=== PATIENT | female | born 1995 | race Caucasian/White ===

== ENCOUNTER 2016-09-03 14:19 | Emergency (ER) | payer MEDICAID ==
--- NOTE | 2016-09-03 15:39 | ER Document Report ---
ED Skin Rash/Insect Bite/Abscs - General Chief Complaint: Rash Stated Complaint: SKIN BREAK OUT Time seen by provider: 15:34 Mode of Arrival: Ambulatory Information source: Patient Notes: 21-year-old female presents to ED for a painful rash to the buttocks and down her left leg. Patient states this started out itching and burning and then a couple days later she noticed a rash she states that there is more in more bumps popping out. Does not remember any fever. TRAVEL OUTSIDE OF THE [place] IN LAST 30 DAYS: No - HPI Patient complains to provider of: Skin rash/lesion Onset: Other - Couple days burning and itching started first and then the rash Onset/Duration: Gradual Quality of pain: Burning - And teaching Severity: Moderate Pain Level: 3 Skin Character: Rash Quality of rash: Itchy, Burning Identify cause: No Exacerbated by: Other - Anything touches the rash Relieved by: Denies Similar symptoms previously: No Recently seen / treated by doctor: No - Related Data Allergies/Adverse Reactions: No Known Allergies Allergy (Unverified 09/04/13 09:44) Past Medical History - General Information source: Patient - Social History Smoking Status: Never Smoker Chew tobacco use (# tins/day): No Frequency of alcohol use: None Drug Abuse: None 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 Lives with: Spouse/Significant other - And child Family History: Reviewed & Not Pertinent Patient has suicidal ideation: No - Past Medical History Cardiac Medical History: Reports: None Pulmonary Medical History: Reports: None EENT Medical History: Reports: None Neurological Medical History: Reports: None Endocrine Medical History: Reports: None Renal/ Medical History: Reports: None Malignancy Medical History: Reports: None GI Medical History: Reports: None Musculoskeltal Medical History: Reports None Skin Medical History: Reports None Psychiatric Medical History: Reports: None, Hx Depression Traumatic Medical History: Reports: None Infectious Medical History: Reports: None Past Surgical History: Reports: Hx Adenoidectomy, Hx Dilation and Curettage, Hx Myringotomy, Hx Tonsillectomy, Other - Removal - Immunizations Immunizations up to date: Yes Review of Systems - Review of Systems Constitutional: No symptoms reported EENT: No symptoms reported Cardiovascular: No symptoms reported Respiratory: No symptoms reported Gastrointestinal: No symptoms reported Genitourinary: No symptoms reported Female Genitourinary: No symptoms reported Musculoskeletal: No symptoms reported Skin: Rash - Left buttocks and down the inner back left leg Hematologic/Lymphatic: No symptoms reported Neurological/Psychological: No symptoms reported -: Yes All other systems reviewed and negative Physical Exam - Vital signs Vitals: Temp Pulse Resp BP Pulse Ox 98.4 F 71 16 136/93 H 100 09/03/16 14:30 09/03/16 14:30 09/03/16 14:30 09/03/16 14:30 09/03/16 14:30 Interpretation: Normal - General General appearance: Appears well, Alert - HEENT Head: Normocephalic, Atraumatic Eyes: Normal Pupils: PERRL - Respiratory Respiratory status: No respiratory distress Chest status: Nontender Breath sounds: Normal Chest palpation: Normal - Cardiovascular Rhythm: Regular Heart sounds: Normal auscultation Murmur: No - Abdominal Inspection: Normal Distension: No distension Bowel sounds: Normal Tenderness: Nontender Organomegaly: No organomegaly - Back Back: Normal, Nontender - Extremities General upper extremity: Normal inspection, Nontender, Normal color, Normal ROM , Normal temperature General lower extremity: Normal inspection, Nontender, Normal color, Normal ROM , Normal temperature, Normal weight bearing. No: Candelario's sign - Neurological Neuro grossly intact: Yes Cognition: Normal Orientation: AAOx4 Hal Coma Scale Eye Opening: Spontaneous [place] Coma Scale Verbal: Oriented Hal Coma Scale Motor: Obeys Commands [place] Coma Scale Total: 15 Speech: Normal Motor strength normal: LUE, RUE, LLE, RLE Sensory: Normal - Psychological Associated symptoms: Normal affect, Normal mood - Skin Skin Temperature: Warm Skin Moisture: Dry Skin Color: Normal Skin irregularity: Rash Location of irregularity: Other - Left Buttocks down into her posterior left leg Character of irregularity: Vesicular, Erythematous Irregularity with: Tenderness Course - Vital Signs Vital signs: Temp Pulse Resp BP Pulse Ox 98.4 F 69 18 134/90 H 100 09/03/16 16:00 09/03/16 16:00 09/03/16 16:00 09/03/16 16:00 09/03/16 16:00 Discharge - Discharge Clinical Impression: Shingles Qualifiers: Herpes zoster complications: without complications Qualified Code(s): B02.9 - Zoster without complications Condition: Stable Disposition: HOME, SELF-CARE Instructions: Family Physicians / Practices Additional Instructions: Shingles You have shingles. Shingles is caused by the chicken pox virus, The virus has been surviving dormant in a nerve cell since you had chicken pox years ago. The virus has spread down a nerve root to reach the skin. Typically, an band-like area of pain and skin sensitivity develops, then small blisters erupt in the area. Shingles lasts two or three weeks, but sometimes leaves persistent pain. You are contagious -- you can give children chicken pox. But you can't give anyone shingles. Antiviral medicines (such as acyclovir or famciclovir) can help, but the rash usually worsens for about a week. Pain medication is often given if the area hurts. Antihistamines such as Benadryl may be necessary for itching if it does not respond to soda baths and calamine lotion. Sometimes cortisone medicine or nerve-block shots are necessary if pain is severe. If the area remains severely painful as the sores heal, or if you suspect an infection developing in the sores, see your doctor. Acyclovir Acyclovir (Zovirax) is used to treat infections caused by the Herpes family of viruses. It's available as capsules or ointment. Zovirax is most effective if started at the first sign of the viral outbreak. It can decrease the severity and duration of symptoms. However, it doesn't eliminate the virus from the body completely. If you're prone to repeated outbreaks of herpes, you'll continue to have attacks. Apply ointment with a disposable glove or finger-cot to avoid spreading the virus with your finger. If pills have been prescribed, take them for the full recommended course. Occasionally, mild nausea or headaches may occur. Call the doctor if you develop wheezing, itching, rash, shortness of breath , or lightheadedness. Ibuprofen Ibuprofen is an excellent, safe drug for pain control. In addition, it has potent antiinflammatory effects which are beneficial, especially in the treatment of injuries, arthritis, or tendonitis. It's best to take ibuprofen with food. Persons with ulcer disease or allergy to aspirin should notify their physician of this before taking ibuprofen. Take the medication exactly as prescribed. Don't take additional doses unless instructed to do so by your doctor. If you develop wheezing, shortness of breath, hives, faintness, stomach pain, vomiting, or dark black stools, return for re-evaluation at once. FOLLOW-UP CARE: If you have been referred to a physician for follow-up care, call the physician s office for an appointment as you were instructed or within the next two days. If you experience worsening or a significant change in your symptoms, notify the physician immediately or return to the Emergency Department at any time for re-evaluation. Please complete the patient's satisfaction survey if you get one and return. If you do not receive a survey you can go to [facility] website [email or web address] and place your comments about your very good care. Thank you very much. It was a pleasure be in your medical provider today. Prescriptions: Acyclovir [Zovirax 800 mg Tablet] 800 mg PO 5XD 7 Days Forms: Elevated Blood Pressure, Return to Work Referrals: GEORGINA HOLM PA-C [Primary Care Provider] - Follow up as needed
[2016-09-03] MEDS ORDERED: ACYCLOVIR 200 MG CAPSULE PO ONE (15:46)
[2016-09-03] MEDS ORDERED: IBUPROFEN 800 MG TABLET PO ONE (15:46)
[2016-09-03 16:18] VITALS: BP 134/90
== END 2016-09-03 16:06 | disposition home or self-care (01) ==
LOC: ER 14:19
DX: B02.9 Zoster without complications (principal); R21 Rash and other nonspecific skin eruption
CPT/HCPCS: 99282; J3490

== ENCOUNTER 2017-04-10 19:40 | Emergency (ER) | payer SELFPAY ==
[2017-04-10] MEDS ORDERED: METOCLOPRAMIDE HCL INJ/PF 10 MG/2 ML SDV IV ONE (20:56)
[2017-04-10] MEDS ORDERED: DIPHENHYDRAMINE HCL 50 MG/ML VIAL IV ONE (20:56)
[2017-04-10] MEDS ORDERED: NORMAL SALINE 1000 ML 1,000 ML IV ONE (20:56)
--- NOTE | 2017-04-10 20:58 | ER Document Report ---
HPI - HPI Patient complains to provider of: Migraine headache Onset: This morning Onset/Duration: Persistent Quality of pain: Throbbing Pain Level: 4 Context: Patient presents complaining of migraine headache that started around 11 AM today. Patient denies any head injury, fever or recent illness. Patient does report nausea and vomiting 4 episodes today. Patient states headache is typical of migraines that she has had in the past. Associated Symptoms: Headache, Nausea, Vomiting. denies: Chest pain, Nonproductive cough, Productive cough, Fever Exacerbated by: Denies Relieved by: Denies Similar symptoms previously: Yes Recently seen / treated by doctor: No - ROS ROS below otherwise negative: Yes Systems Reviewed and Negative: Yes All other systems reviewed and negative - CONSTITUTIONAL Constitutional: DENIES: Fever, Chills - NEURO Neurology: REPORTS: Headache - Migraine. DENIES: Dizzinesss / Vertigo - RESPIRATORY Respiratory: DENIES: Coughing - GASTROINTESTINAL Gastrointestinal: REPORTS: Nausea, Patient vomiting. 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 Lives with: Family Family History: Reviewed & Not Pertinent Patient has suicidal ideation: No Patient has homicidal ideation: No Neurological Medical History: Reports: Hx Migraine Renal/ Medical History: Denies: Hx Peritoneal Dialysis Psychiatric Medical History: Reports: Hx Anxiety, Hx Depression Past Surgical History: Reports: Hx Adenoidectomy, Hx Dilation and Curettage, Hx Myringotomy, Hx Tonsillectomy, Other - Removal - Immunizations Immunizations up to date: Yes Vertical Provider Document - CONSTITUTIONAL Agree With Documented VS: Yes Exam Limitations: No Limitations General Appearance: WD/WN, No Apparent Distress - INFECTION CONTROL TRAVEL OUTSIDE OF THE [place] IN LAST 30 DAYS: No - HEENT HEENT: Atraumatic, Normal ENT Exam, Normocephalic, PERRLA. negative: Pharyngeal Exudate, Pharyngeal Tenderness, Pharyngeal Erythema, Tympanic Membrane Red, Tympanic Membrane Bulging - NECK Neck: Normal Inspection, Supple. negative: Lymphadenopathy-Left, Lymphadenopathy-Right Notes: No meningismus - RESPIRATORY Respiratory: Breath Sounds Normal, No Respiratory Distress O2 Sat by Pulse Oximetry: 100 - CARDIOVASCULAR Cardiovascular: Regular Rate, Regular Rhythm, No Murmur - GI/ABDOMEN Gastrointestinal: Abdomen Soft, Abdomen Non-Tender - BACK Back: Normal Inspection. negative: CVA Tenderness-Right, CVA Tenderness-Left Notes: No spinal midline tenderness - MUSCULOSKELETAL/EXTREMETIES Musculoskeletal/Extremeties: MAEW, FROM - NEURO Level of Consciousness: Awake, Alert, Appropriate Motor/Sensory: No Motor Deficit - DERM Integumentary: Warm, Dry, No Rash Course - Re-evaluation Re-evalutation: 04/10/17 22:22 Patient reports that headache pain has resolved and is feeling much better. The patient presents with headache without signs of FUELER bleed, stroke, infection , or other serious etiology. The patient is neurologically intact. Given the extremely low risk of these diagnoses further testing and evaluation for these possibilities does not appear to be indicated at this time. The patient has been instructed to return if the symptoms worsen or change in any way. - Vital Signs Vital signs: Temp Pulse Resp BP Pulse Ox 98.6 F 90 18 136/88 H 100 04/10/17 20:25 04/10/17 20:25 04/10/17 20:25 04/10/17 20:25 04/10/17 20:25 Discharge - Discharge Clinical Impression: Headache Qualifiers: Headache type: unspecified Headache chronicity pattern: acute headache Intractability: not intractable Qualified Code(s): R51 - Headache Condition: Stable Disposition: HOME, SELF-CARE Instructions: Antinausea Medication ([facility]), Use of Diphenhydramine, Headache ( [facility]), Reglan ([facility]) Additional Instructions: Return immediately for any new or worsening symptoms Followup with your primary care provider, call tomorrow to make a followup appointment Prescriptions: Promethazine HCl [Phenergan 25 mg Tablet] 25 mg PO Q6H PRN #12 tablet PRN Reason: Forms: Return to Work Referrals: GEORGINA HOLM PA-C [Primary Care Provider] - Follow up tomorrow
[2017-04-10 22:58] VITALS: BP 121/76
== END 2017-04-10 22:58 | disposition home or self-care (01) ==
LOC: ER 19:40
DX: G43.909 Migraine, unspecified, not intractable, without status migrainosus (principal); R11.2 Nausea with vomiting, unspecified
CPT/HCPCS: 99284; 96361; 96374; 96375; 81025; J1200; J2765; J7030

== ENCOUNTER 2017-05-14 22:52 | Emergency (ER) | payer SELFPAY ==
--- NOTE | 2017-05-15 00:05 | ER Document Report ---
ED General - General Chief Complaint: Congestion Stated Complaint: EAR PAIN,HEADACHE Time Seen by Provider: 05/15/17 00:03 Mode of Arrival: Ambulatory Information source: Patient Notes: Patient is a 21-year-old female comes emergency room complaining of 12 hour onset of congestion cough and runny nose. 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 She has run a low-grade fever and is taken Tylenol for it. Currently she states that she is so congested and having hacking coughing that she cannot seem to clear her nose. She is here for evaluation. TRAVEL OUTSIDE OF THE [place] IN LAST 30 DAYS: No - HPI Patient complains to provider of: URI symptoms Onset: This morning Onset/Duration: Sudden Quality of pain: Achy Severity: Mild Pain Level: 1 Associated symptoms: Body/muscle aches, Chills, Nonproductive cough, Earache, Fever, Headache, Hoarseness, Rhinnorhea, Sinus pain/drainage, Sore throat, Weakness Exacerbated by: Coughing Relieved by: Denies Similar symptoms previously: Yes Recently seen / treated by doctor: No - Related Data Allergies/Adverse Reactions: No Known Allergies Allergy (Verified 04/10/17 20:24) Past Medical History - General Information source: Patient - Social History Smoking Status: Never Smoker Cigarette use (# per day): No Chew tobacco use (# tins/day): No Smoking Education Provided: No Frequency of alcohol use: Rare Drug Abuse: None Family History: Reviewed & Not Pertinent Neurological Medical History: Reports: Hx Migraine Renal/ Medical History: Denies: Hx Peritoneal Dialysis Psychiatric Medical History: Reports: Hx Anxiety, Hx Depression Past Surgical History: Reports: Hx Adenoidectomy, Hx Dilation and Curettage, Hx Myringotomy, Hx Tonsillectomy, Other - Removal - Immunizations Immunizations up to date: Yes Review of Systems - Review of Systems Constitutional: Chills, Fever EENT: Ear pain, Nose congestion, Nose discharge, Sinus pressure, Sinus discharge , Difficulty swallowing Cardiovascular: No symptoms reported Respiratory: Cough Gastrointestinal: No symptoms reported Genitourinary: No symptoms reported Female Genitourinary: No symptoms reported Musculoskeletal: Muscle pain Skin: No symptoms reported Hematologic/Lymphatic: No symptoms reported Neurological/Psychological: No symptoms reported -: Yes All other systems reviewed and negative Physical Exam - Vital signs Vitals: Temp Pulse Resp BP Pulse Ox 97.7 F 92 18 136/95 H 97 05/14/17 23:02 05/14/17 23:02 05/14/17 23:02 05/14/17 23:02 05/14/17 23:02 Interpretation: Hypertensive - HEENT Head: Normocephalic, Atraumatic Eyes: Normal Ears: Normal External canal: Normal Tympanic membrane: Bulging Sinus: Frontal, Tenderness Nasal: Purulent discharge Mouth/Lips: Normal Mucous membranes: Moist Pharynx: Post nasal drainage Neck: Normal. No: Anterior cervical chain, Posterior cervical chain, Brudzinski , Carotid bruit, Kernig's, Lymphadenopathy, Meningismus, Neck mass, Shotty nodes , Subcutaneous emphysema, Supple, Thyroid nodule, Thyromegally, Other - Respiratory Respiratory status: No respiratory distress Chest status: Nontender Breath sounds: Normal. No: Decreased air movement, Nonproductive cough, Productive cough, Rales, Rhonchi, Stridor, Wheezing, Other - Cardiovascular Rhythm: Regular Heart sounds: Normal auscultation Murmur: No - Neurological Neuro grossly intact: Yes Cognition: Normal Orientation: AAOx4 Hal Coma Scale Eye Opening: Spontaneous [place] Coma Scale Verbal: Oriented [place] Coma Scale Motor: Obeys Commands [place] Coma Scale Total: 15 Speech: Normal - Skin Skin Temperature: Warm Skin Moisture: Dry Skin Color: Normal, Violet Course - Vital Signs Vital signs: Temp Pulse Resp BP Pulse Ox 97.7 F 92 18 136/95 H 97 05/14/17 23:02 05/14/17 23:02 05/14/17 23:02 05/14/17 23:02 05/14/17 23:02 - Transfer of Care Notes: 05/15/17 00:16 At this time patient's presentation is significant enough for congestion runny nose cough and frontal sinus tenderness with a migraine that will go ahead and treat her at this time. We will put her on amoxicillin, prednisone taper, and Sudafed. Discharge - Discharge Clinical Impression: Upper respiratory infection Sinusitis Qualifiers: Sinusitis location: frontal Chronicity: acute Recurrence: non-recurrent Qualified Code(s): J01.10 - Acute frontal sinusitis, unspecified Condition: Good Disposition: HOME, SELF-CARE Instructions: Acetaminophen, Upper Respiratory Illness ([facility]), Sinusitis ([facility]) Additional Instructions: Home and rest. Tylenol alternating with Motrin for aches pains and fever. Use nasal saline keep the nose moist and secretions thin. Medications as prescribed. Should you have any concerns or problems are get short of breath return to ER for recheck. Prescriptions: Amoxicillin 500 mg PO TID #30 capsule Prednisone [Sterapred Ds] 1 pkg PO ASDIR PRN 6 Days #1 tab.ds.pk PRN Reason: Pseudoephedrine HCl [Sudafed 12-Hour] 120 mg PO BID #20 tablet.er Forms: Elevated Blood Pressure, Return to Work
[2017-05-15 00:40] VITALS: BP 139/86
== END 2017-05-15 00:42 | disposition home or self-care (01) ==
LOC: ER 22:52
DX: J01.10 Acute frontal sinusitis, unspecified (principal); J02.9 Acute pharyngitis, unspecified; R05 Cough; R49.0 Dysphonia; M79.1 Myalgia; R09.81 Nasal congestion; R53.1 Weakness; R13.10 Dysphagia, unspecified
CPT/HCPCS: 99283